=== PATIENT | female | born 1985 | race Caucasian/White ===

== ENCOUNTER → 2017-06-03 | Outpatient (CLI) | payer BC ==
--- NOTE | 2017-06-03 14:33 | RAD ---
Right ankle, 3 views, 06/03/2017: History: Ankle pain and swelling There are [address] at the level of the medial malleolus. The original fracture is not visible. No acute fracture or dislocation is identified. IMPRESSION: No acute bony abnormality is detected.
== END | disposition home or self-care (01) ==
LOC: DXRADRC 09:34
PROVIDERS: ATTEND Internal Medicine
DX: M25.571 Pain in right ankle and joints of right foot (principal); M25.431 Effusion, right wrist
CPT/HCPCS: 73600